=== PATIENT | male | born 1960 | race Caucasian/White ===

== ENCOUNTER 2018-02-13 23:41 | Observation (INO) | payer OTHER ==
[2018-02-14 00:03] LABS: Hemoglobin 15.4 g/dL (14.0-18.0); Mean Corpuscular HGB CONC 33.1 g/dL (32.0-36.0); Mean Corpuscular Volume 81.8 fl (80.0-94.0); Mean Platelet Volume 6.9 fL (7.4-10.4); Platelet Count 277 thou/uL (130-400); RBC Distribution Width 11.9 % (11.5-14.5); Red Blood Cell (RBC) Count 5.68 mill/uL (4.70-6.10); White Blood Cell (WBC) Count 8.3 thou/uL (4.8-10.8)
[2018-02-14] MEDS ORDERED: Nitroglycerin 0.4 MG TAB (25 Tab Bottle) ONE (00:06)
[2018-02-14] MEDS ORDERED: Mag-Al Plus 1200 MG/1200 MG/120 MG/30 ML UDCUP ONE (00:07)
[2018-02-14] MEDS ORDERED: Nitroglycerin 2% Ointment 1 INCH/1 GM Packet ONE (00:07)
[2018-02-14] MEDS ORDERED: Lidocaine Viscous Sol 2% 15 ml UD Cup ONE (00:07)
[2018-02-14 00:22] LABS: Eosinophils 3 % (0-10); Lymphocytes 39 % (21-51); MDiff Complete? YES; Monocytes 8 % (0-10); Neutrophil 50 % (42-75)
[2018-02-14 00:25] LABS: ALT (SGPT) 26 U/L (8-55); AST (SGOT) 20 U/L (5-34); Albumin 4.2 g/dL (3.5-5.0); Alkaline Phosphatase 57 U/L (40-150); Anion Gap 16 mmol/L (10-20); BUN (Urea Nitrogen) 17 mg/dL (8.4-25.7); Bilirubin, Total 0.6 mg/dL (0.2-1.2); CK (CPK) 103 U/L (30-200); Calc. Creatinine Clearance 0 mL/min (70-130); Calcium 9.4 mg/dL (7.8-10.44); Carbon Dioxide 23 mmol/L (22-29); Chloride 104 mmol/L (98-107); Estimated GFR-MDRD 61; Globulin 3.3 g/dL (2.4-3.5); Glucose 105 mg/dL (70-105); Lipase 35 U/L (8-78); Potassium 3.6 mmol/L (3.5-5.1); Protein, Total 7.5 g/dL (6.0-8.3); Sodium 139 mmol/L (136-145)
[2018-02-14 00:26] LABS: Troponin I Less than 0.010 ng/mL (< 0.028)
[2018-02-14] MEDS ORDERED: Ondansetron HCl/PF 4 MG/2 ML Vial IVP PRN ×2 (02:22→08:35)
[2018-02-14] MEDS ORDERED: Acetaminophen 325 MG TAB PO PRN (02:22)
[2018-02-14] MEDS ORDERED: Ondansetron ODT 4 MG TAB SL PRN (02:22)
[2018-02-14 02:43] VITALS: BMI 37.0
[2018-02-14 04:53] LABS: Troponin I Less than 0.010 ng/mL (< 0.028)
[2018-02-14 07:22] LABS: Troponin I 0.023 ng/mL (< 0.028)
--- NOTE | 2018-02-14 08:11 | RAD ---
SINGLE VIEW CHEST: Date: 02/13/18 COMPARISON: None. HISTORY: Chest pain. FINDINGS: Single view of the chest shows a normal sized cardiomediastinal silhouette. There is no evidence of c onsolidation, mass, or pleural effusion. The bones are unremarkable. IMPRESSION: No evidence of acute cardiopulmonary disease. POS: [facility]
[2018-02-14] MEDS ORDERED: Ondansetron ODT 4 MG TAB PO PRN (08:35)
[2018-02-14] MEDS ORDERED: HumaLOG 300 UNITS/3 ML VIAL SC PRN ×2 (08:35)
[2018-02-14] MEDS ORDERED: Dextrose 5% in Water 1,000 ML IV PRN (08:35)
[2018-02-14] MEDS ORDERED: cloNIDine 0.1 MG TAB PO PRN (08:35)
[2018-02-14] MEDS ORDERED: Acetaminophen 500 MG TAB PO PRN (08:35)
[2018-02-14] MEDS ORDERED: hydrALAZINE 20 MG/ML VIAL SLOW IVP PRN (08:35)
[2018-02-14] MEDS ORDERED: Dextrose 50% Abboject 50 ML SYRINGE SLOW IVP PRN (08:35)
[2018-02-14] MEDS ORDERED: Losartan 25 MG TAB PO SCH (09:00)
[2018-02-14] MEDS ORDERED: Famotidine 20 MG TAB PO SCH (09:00)
[2018-02-14] MEDS ORDERED: Amlodipine 10 MG TAB PO SCH (09:00)
[2018-02-14] MEDS ORDERED: Methocarbamol 500 MG TAB PO PRN (09:08)
--- NOTE | 2018-02-14 10:50 | HP ---
DATE OF ADMISSION: 02/14/2018 PRIMARY CARE PHYSICIAN: Dr. Mohsen Nolan. CHIEF COMPLAINT: Chest pain. HISTORY OF PRESENT ILLNESS: This is a 57-year-old male who presented to [facility] Emergency Department complaining of chest pain for approximately 30-40 minutes prior to arrival aft er getting ready for bed on 02/13/2018. The patient states he had a very stressful day at work which carried over into the early evening hours. The patient states he sat through meetings for approxima tely 12 hours and then took home approximately 4 hours of more work to be completed. The patient adm its to increased stress at his employment, which has been progressive. The patient noted his blood p ressure was elevated and takes chronic antihypertensive medications including amlodipine and carvedil ol. The patient states he has been compliant with his medication regimen, but has noted his systolic blood pressures running beyond his normal range. The patient states he felt pressure in the central portion of the chest, rating the pain 6/10. The patient had some associated shortness of breath and cough. The patient denied any recent fever, chills, chest trauma, left arm discomfort or jaw pain. The patient states he had a "mild heart attack" in 2000, undergoing stress testing which was nondiag nostic. The patient states he was told at that time it was likely stress related. The patient state s his father had coronary artery disease diagnosed in his early 50s, undergoing bypass surgery x2. T he patient states his last stress testing was approximately 2000. The patient admits that he is limi jean in sedentary as far as exercise regimen due to arthritis in both knees. The patient states he is slated for knee replacements in the near future. Currently, ambulates with a cane intermittently, b ut is functional of all activities of daily living. In the emergency room, patient underwent general evaluation including metabolic screening which was negative. Chest x-ray was unremarkable and EKG w as nondiagnostic. The patient received aspirin, GI cocktail, sublingual nitroglycerin and transderma l nitroglycerin as well as 324 mg aspirin. The patient was referred to the Hospitalist Service for e valuation. PAST MEDICAL HISTORY: 1. Hypertension. 2. Hyperlipidemia. 3. Diabetes mellitus type 2 on oral hypoglycemics. 4. Morbid obesity. 5. Osteoarthritis. PAST SURGICAL HISTORY: 1. Status post EGD. 2. Status post right knee arthroscopy. CURRENT MEDICATIONS: 1. Amlodipine 10 mg 1 tab p.o. daily. 2. Invokana 100 mg p.o. daily. 3. Carvedilol 25 mg p.o. b.i.d. 4. Amaryl 4 mg p.o. daily. 5. Losartan 100 mg 1 tab p.o. daily. 6. Metformin 1000 mg p.o. b.i.d. 7. Methocarbamol 750 mg p.o. t.i.d. p.r.n. 8. Pravachol 80 mg p.o. at bedtime. ALLERGIES: PENICILLIN and SULFA. FAMILY HISTORY: Father with early coronary artery disease in his 50s, status post coronary artery by pass surgery x2. SOCIAL HISTORY: Patient is and resides in [place], [place]. 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 No curr ent alcohol, tobacco or illicit drug use. Intermittent use of a cane for ambulation. REVIEW OF SYSTEMS: The following complete review of systems was negative, unless otherwise mentioned in the HPI or below: Constitutional: Weight loss or gain, ability to conduct usual activities. Skin: Rash, itching. Eyes: Double vision, pain. ENT/Mouth: Nose bleeding, neck stiffness, pain, tenderness. Cardiovascular: Palpitations, dyspnea on exertion, orthopnea. Respiratory: Shortness of breath, wheezing, cough, hemoptysis, fever or night sweats. Gastrointestinal: Poor appetite, abdominal pain, heartburn, nausea, vomiting, constipation, or diarr hea. Genitourinary: Urgency, frequency, dysuria, nocturia. Musculoskeletal: Pain, swelling. Neurologic/Psychiatric: Anxiety, depression. Allergy/Immunologic: Skin rash, bleeding tendency. Otherwise negative except as stated per HPI. PHYSICAL EXAMINATION: VITAL SIGNS: Currently blood pressure 167/77, pulse 66, respiratory rate 18, temperature 97.8 degree s Fahrenheit, and O2 saturation 93% on room air. GENERAL APPEARANCE: This is a 57-year-old male, alert and oriented x3, pleasant, conversan t, in no acute distress. HEENT: Pupils are equal, round, and reactive to light and accommodation. Extraocular muscles are in tact. No scleral icterus, no conjunctival injection. Nares patent. OP is clear. Teeth in good rep air. NECK: Supple, no cervical adenopathy, no thyromegaly, no carotid bruits, no JVD appreciated. Cervic al spine is full active and passive range of motion. No meningeal signs appreciated. CHEST: Lungs are clear to auscultation bilaterally. CARDIOVASCULAR: S1 and S2 without noted murmur, rub or gallop. ABDOMEN: Obese, soft, nontender, and nondistended. Bowel sounds are positive in all four quadrants. There is no hepatosplenomegaly, no abdominal bruits, no rebound or guarding appreciated. EXTREMITIES: Warm and dry with fair turgor. Pitting edema to the proximal shins bilaterally. Pulse s palpable distally at the dorsalis pedis, posterior tibial, and popliteal arteries bilaterally. Cap illary refill less than 2 seconds. NEUROLOGIC: Cranial nerves II-XII are grossly intact. No focal or lateralizing signs appreciated. PERTINENT LABORATORY DATA AND IMAGING DATA: Complete metabolic profile within normal limits. BNP 31 .7, troponin I negative x3. CBC within normal limits. Portable chest x-ray dated 02/13/2018 showed no acute cardiopulmonary process. EKG dated 02/13/2018 by my interpretation shows sinus mechanism wi th heart rates in the 70s. Attenuated R waves in the precordial leads. Normal axis. Voltage criter ia consistent with left ventricular hypertrophy. ASSESSMENT AND PLAN: 1. Chest pain. The patient will be observed on the telemetry unit. We will proceed with Cardiolite stress testing with serial troponin I negative x3. Continue aspirin 324 mg daily. Continue Pravach ol 40 mg p.o. at bedtime. 2. Hypertension, labile. We will resume home antihypertensive regimen with losartan 100 mg daily an d Norvasc 10 mg daily. Hold carvedilol 25 mg b.i.d. until Cardiolite stress testing completed. Cont inue serial blood pressure monitoring. 3. Diabetes mellitus type 2. Hold oral hypoglycemics, pending cardiac stress testing. Accu-Cheks q .6 hours. Insulin sliding scale for reflexive coverage. 4. Hyperlipidemia. Continue Pravachol 40 mg daily. 5. Prophylaxis. Sequential compression devices while in bed. Pepcid 20 mg p.o. b.i.d. 6. Code status is FULL. Surrogate medical decision maker is patient's spouse.
[2018-02-14 13:00] VITALS: TEMP 97.3
--- NOTE | 2018-02-14 13:51 | NM ---
NUCLEAR MEDICINE CARDIAC STRESS WITH EJECTION FRACTION AND WALL MOTION: Date: 02/14/18 HISTORY: Chest pain. COMPARISON: None. TECHNIQUE: The patient was administered 9.3 mCi of technetium-99m sestamibi for rest imaging and 29 mCi of techn etium-99m sestamibi for stress imaging. Cardiac gating is performed. FINDINGS: Homogeneous distribution of the radiotracer in the nonattenuated, as well as attenuated correction im ages. No reversibility. No fixed defect. TID is 1.14. End-diastolic volume is 189 ml. End-systolic volume is 90 ml. CARDIAC GATING: Normal motion and thickening. 53% ejection fraction. IMPRESSION: 1. No reversibility or fixed defect. 2. Dilatation of the left ventricle. 3. 53% ejection fraction. POS: [facility]
[2018-02-14 15:38] VITALS: BP 149/67
[2018-02-14] MEDS ORDERED: Regadenoson 0.4 MG/5 ML SYRINGE ONE (16:29)
[2018-02-14] MEDS ORDERED: Atorvastatin Calcium 10 MG TAB PO SCH (21:00)
--- NOTE | 2018-02-15 01:03 | DIS ---
DATE OF ADMISSION: 02/14/2018 DATE OF DISCHARGE: 02/14/2018 DISCHARGE DIAGNOSES: 1. Chest pain, atypical, noncardiac. 2. Hypertension, stable. 3. Diabetes mellitus type 2, stable. 4. Hyperlipidemia. 5. Obesity. CONSULTATIONS: None. PERTINENT LABORATORY AND X-RAY FINDINGS: Complete metabolic profile within normal limits. Troponin I negative x3. BNP 31.7. CBC within normal limits. Portable chest x-ray showed no acute cardiopulm onary process. Cardiolite stress test dated 02/14/2018 showed no evidence for reversible fixed ische zach with calculated ejection fraction of 53%. HOSPITAL COURSE: The patient was observed on the telemetry unit, presenting with chest pain with ris k factors to include hypertension, diabetes, and family history. The patient underwent serial cardia c enzymes which were negative x3 proceeding to Cardiolite stress testing showing no evidence for reve rsible or fixed ischemia with calculated ejection fraction of 53%. Telemetry monitoring showed no ev idence of acute arrhythmia or dysrhythmia, and patient remained clinically stable throughout the hosp ital course. The patient was noted on clinical exam with lower extremity edema contributed to Norvas c therapy. I have examined the patient at the time of discharge and reviewed all pertinent labs and x-ray studies. Reviewed cardiac stress testing with recommendations for followup. The patient verbcristal gonzalezes understanding and agreement and will discharge home on 02/14/2018. DISCHARGE MEDICATIONS: 1. Norvasc 10 mg 1 tab p.o. daily. 2. Invokana 100 mg p.o. daily. 3. Carvedilol 25 mg p.o. b.i.d. 4. Amaryl 4 mg p.o. daily. 5. Losartan 100 mg p.o. daily. 6. Metformin 1000 mg p.o. b.i.d. 7. Methocarbamol 750 mg p.o. q.8 hours p.r.n. 8. Pravachol 40 mg p.o. at bedtime. FOLLOWUP: The patient will follow up with his primary care provider, Dr. Mohsen Nolan within 7 days of discharge. CONDITION ON DISCHARGE: Stable. ACTIVITY: Ad romulo. DIET: Heart healthy and ADA. CODE STATUS: FULL. DISPOSITION: Home on 02/14/2018.
--- NOTE | 2018-02-23 12:56 | EKG ---
Test Reason : Blood Pressure : / mmHG Vent. Rate : 069 BPM Atrial Rate : 069 BPM P-R Int : 168 ms QRS Dur : 108 ms QT Int : 406 ms P-R-T Axes : 071 063 086 degrees QTc Int : 435 ms Normal sinus rhythm Left ventricular hypertrophy with repolarization abnormality Nonspecific ST abnormality Abnormal ECG Confirmed by FAMILIA YANEZ DO ([id number]), production editor THELMA TAY ([id number]) on 02/23/2018 12:56:31 PM Referred By: Confirmed By:FAMILIA YANEZ DO
== END 2018-02-14 16:53 | disposition home or self-care (01) ==
LOC: SCSER 23:41 → 2SW 02-14 00:40
PROVIDERS: ADMIT Internal Medicine; ATTEND Internal Medicine
DX: R07.89 Other chest pain (principal); I10 Essential (primary) hypertension; E78.5 Hyperlipidemia, unspecified; E11.9 Type 2 diabetes mellitus without complications; M19.90 Unspecified osteoarthritis, unspecified site; E66.01 Morbid (severe) obesity due to excess calories; Z68.37 Body mass index [BMI] 37.0-37.9, adult; Z79.84 Long term (current) use of oral hypoglycemic drugs; Z79.899 Other long term (current) drug therapy; Z88.0 Allergy status to penicillin; Z88.2 Allergy status to sulfonamides
CPT/HCPCS: 36415; 36416; 71045; 78452; 80053; 82550; 82553; 83690; 83880; 84484; 85025; 93005; 93017; A4216; A9500; G0378; J2785

== ENCOUNTER 2018-08-14 10:54 | Outpatient (CLI) | payer OTHER ==
--- NOTE | 2018-08-14 11:51 | RAD ---
TWO VIEWS CHEST: Comparison: None. History: Chest pain, shortness of breath. FINDINGS: Two views of the chest show normal sized cardiomediastinal silhouette. There is no evidence of consol idation, mass, or pleural effusion. The bones are unremarkable. IMPRESSION: No evidence of acute cardiopulmonary disease. POS: [facility]
== END 2018-08-14 10:55 | disposition home or self-care (01) ==
LOC: SCSRAD 10:54
PROVIDERS: ATTEND Nurse Practitioner Family
DX: J01.10 Acute frontal sinusitis, unspecified (principal)
CPT/HCPCS: 71046

== ENCOUNTER 2018-09-28 16:21 | Emergency (ER) | payer OTHER ==
[2018-09-28] MEDS ORDERED: Ketorolac Tromethamine 30 MG/ML VIAL ONE (16:41)
== END 2018-09-28 17:23 | disposition home or self-care (01) ==
LOC: SCSER 16:21
DX: J02.9 Acute pharyngitis, unspecified (principal); I10 Essential (primary) hypertension; E11.9 Type 2 diabetes mellitus without complications
CPT/HCPCS: J1885

== ENCOUNTER 2018-09-29 14:35 | Inpatient (IN) | payer OTHER ==
[2018-09-29 16:17] LABS: #Lymphocytes 1.3 thou/uL (1.20-3.40); #Neutrophils 17.1 thou/uL (1.40-6.50); %Basophils 0.2 % (0.0-1.0); %Eosinophils 0.2 % (0.0-10.0); %Lymphocytes 6.5 % (21.0-51.0); %Neutrophils 88.1 % (42.0-75.0); Mean Corpuscular HGB CONC 32.2 g/dL (32.0-36.0); Mean Corpuscular Hemoglobin 26.6 pg (27.0-31.0); Mean Corpuscular Volume 82.7 fL (78.0-98.0); Mean Platelet Volume 7.2 fL (7.4-10.4); Platelet Count 283 thou/uL (130-400); RBC Distribution Width 12.3 % (11.5-14.5); Red Blood Cell (RBC) Count 5.28 mill/uL (4.70-6.10); White Blood Cell (WBC) Count 19.4 thou/uL (4.8-10.8)
[2018-09-29 16:40] LABS: ALT (SGPT) 17 U/L (8-55); AST (SGOT) 15 U/L (5-34); Albumin 3.9 g/dL (3.5-5.0); Alkaline Phosphatase 50 U/L (40-150); Anion Gap 13 mmol/L (10-20); BUN (Urea Nitrogen) 15 mg/dL (8.4-25.7); Calc. Creatinine Clearance 0 mL/min (70-130); Calcium 9.3 mg/dL (7.8-10.44); Carbon Dioxide 22 mmol/L (22-29); Chloride 102 mmol/L (98-107); Estimated GFR-MDRD 61; Globulin 3.6 g/dL (2.4-3.5); Glucose 205 mg/dL (70-105); Potassium 3.4 mmol/L (3.5-5.1); Protein, Total 7.5 g/dL (6.0-8.3); Sodium 134 mmol/L (136-145)
--- NOTE | 2018-09-29 16:55 | RAD ---
PORTABLE CHEST ONE VIEW: 09/29/18 at 4:31 p.m. HISTORY: Fever. FINDINGS: Comparison made with exam of 08/14/18. The heart size is borderline. No lobar consolidation, pneumothoraces, usha pulmonary edema or pleura l effusions are seen. IMPRESSION: No acute process. POS: [facility]
[2018-09-29] MEDS ORDERED: Piperacillin/Tazobactam 4.5 GM VIAL ONE (17:46)
[2018-09-29] MEDS ORDERED: Dexamethasone 4 MG TAB ONE (17:48)
--- NOTE | 2018-09-29 17:54 | CT ---
CT OF NECK PERFORMED WITH CONTRAST ENHANCEMENT: 09/29/18 HISTORY: Patient presents to the ER for evaluation of fever, left sided neck mass, swollen lymph nodes. The lung apices are clear of any infiltrative process. Bilateral thyroid nodules are incidentally noted. The visualized brain parenchyma is normal. The parotid and submandibular glands are normal in size. There is marked jugular chain adenopathy, particularly on the left side. Some of the larger nodes josee suring in the 1.8 cm range. There is an edematous appearance to the epiglottis. There is edema change s and obliteration of the vallecular regions and left piriform sinus. There is asymmetric soft tissue changes along the left side of the neck at this region, even extending to the level of the carotid s dilma with loss of normal fat plains. There is some low attenuation which could be fluid density whic h is posterior to the airway at this level. Asymmetric soft tissue changes along the left side of the thyroid cartilage is seen, although changes stop just above the level of the focal cords. I do not s ee significant airway narrowing. IMPRESSION: Markedly edematous epiglottis with edema change with obliteration of vallecular regions and piriform sinus, particularly on the left side with indistinct soft tissue changes extending lateral to the hyo id bone and causing fat stranding even around the region of the carotid sheath. There is marked jugul ar chain lymphadenopathy associated with this particularly on the left side. I would favor that this is probably related an infectious process rather than an infiltrative tumor. There is some fluid dens ity which is seen posterior to the airway just above the vocal cord level. this could just represent edema. I cannot exclude their being some developing abscess. Findings discussed with Dr. George. POS: [facility]
[2018-09-29] MEDS ORDERED: Oseltamivir 75 MG CAP PO SCH (18:00)
[2018-09-29] MEDS ORDERED: Clindamycin/D5W 900 mg/50 ml Premix Bag ONE (18:40)
[2018-09-29] MEDS ORDERED: Dexamethasone 4 mg/ml Vial ONE (19:11)
[2018-09-29] MEDS ORDERED: Acetaminophen 500 MG TAB ONE (19:58)
[2018-09-29] MEDS ORDERED: Lactated Ringer's 1,000 ML IV SCH (21:00)
[2018-09-29] MEDS ORDERED: Acetaminophen 325 MG TAB PO PRN (21:02)
[2018-09-29] MEDS ORDERED: Morphine 2 MG/ML SYRINGE SLOW IVP PRN (21:05)
[2018-09-29 21:11] VITALS: BMI 36.8
[2018-09-29] MEDS ORDERED: Dextrose 50% Abboject 50 ML SYRINGE SLOW IVP PRN (21:46)
[2018-09-29] MEDS ORDERED: Dextrose 5% in Water 1,000 ML IV PRN (21:46)
[2018-09-29] MEDS: Lactated Ringer's 1,000 ML IV SCH (22:51)
[2018-09-29] MEDS: Clindamycin/D5W 600 MG in Premix Bag 1 BAG IVPB SCH (22:51)
[2018-09-29] MEDS ORDERED: Dexamethasone 4 mg/ml Vial SLOW IVP SCH (23:30)
--- NOTE | 2018-09-30 02:28 | HP ---
CHIEF COMPLAINT: Left-sided neck swelling and fever. HISTORY OF PRESENT ILLNESS: The patient is a very pleasant 57-year-old male with a history of hypertension and diabetes, who presented to the hospital with complaints of 103.0 fever and also left-sided neck pain. The patient stated that on Monday, around later on in the afternoon, he started having pain on swallowing and fever. The patient stated that he went to his local ER where he was given some Toradol and discharged home. The patient stated that he continued to have a fever which escalated up to 103.0. The patient stated that he felt that his left neck area was very swollen and was having a very difficult time swallowing. The patient stated that he was only able to eat some food today and only was able to swallow if he chewed his food very well. Denies any difficulty breathing. The patient denies any sick contacts. He denies any recent travels. He denies any recent dental procedures. PAST MEDICAL HISTORY: He has a history of, 1. Hypertension. 2. Diabetes type 2. 3. Obesity. 4. Osteoarthritis. 5. Hyperlipidemia. PAST SURGICAL HISTORY: He has had an EGD in the past and a knee arthroscopy. MEDICATIONS: As of the following; 1. Amlodipine 10 mg daily. 2. Invokana 100 mg daily. 3. Carvedilol 25 mg b.i.d. 4. Amaryl 4 mg daily. 5. Losartan 100 mg daily. 6. Metformin 1000 mg b.i.d. 7. Pravachol 80 mg at bedtime. ALLERGIES: HE IS ALLERGIC TO PENICILLIN AND SULFA. HE STATES THAT HE WENT INTO AN ARRHYTHMIA WITH PENICILLIN BACK IN 1970S. FAMILY HISTORY: Father has early history of coronary artery disease in his 50s, status post bypass. SOCIAL HISTORY: The patient denies any smoking, drug use, or alcohol history. He is a full code. He lives with his family. REVIEW OF SYSTEMS: All negative except for the ones mentioned above in HPI. PHYSICAL EXAMINATION: VITAL SIGNS: Are as of the following, temperature of 101.8, heart rate 92, respirations 20, oxygen saturation 95% room air, blood pressure 159/89. GENERAL: He is awake, alert, and oriented x3. Does not appear in distress. CV: S1 and S2 present. No murmurs, rubs, or gallops. LUNGS: Clear to auscultation. No rhonchi or wheezes noted. HEENT: He has some significant fullness on his left cervical neck area, able to see the patient's vocal cord. The patient has lymphadenopathy noted to his left anterior cervical area. ABDOMEN: Soft and nontender. Bowel sounds are present x2. No hepatomegaly or splenomegaly noted. EXTREMITIES: No edema. Pedal pulses present x2. SKIN: No cuts, lesions, or bruises noted. NEUROLOGIC: No focal deficits noted. NECK: Again does have cervical adenopathy and no carotid bruits heard. LABORATORY DATA: The patient's labs are as of the following; WBCs of 19.4, hemoglobin of 14.1, hematocrit of 43.6, platelets of 283. Chemistry; sodium of 134, potassium of 3.4, BUN of 15, creatinine 1.21, sugar is 205. The patient did have the CT of the neck, which indicated that he had markedly edematous epiglottis with edema change with obliteration of the vallecular region and the pyriform sinus, particularly on the left side and indistinct soft tissue changes extending laterally to the hyoid bone causing a flat strand even around the area of the carotid sheath. He also indicated marked jugular chain lymphadenopathy associated with this particular on the left side. His flu was positive for influenza B. ASSESSMENT AND PLAN: The patient is a very pleasant 57-year-old male who presents to the hospital with complaints of fever and left-sided pain. 1. Parapharyngeal abscess. The patient has significant anterior cervical lymphadenopathy on the left side of his neck area. We will start the patient on some clindamycin since he is allergic to penicillin. Also, the patient has no difficulty swallowing. May consider starting the patient on some steroids. The patient is admitted to the [facility]. We will start him on some IV hydration. ENT has been called and notified about this patient. 2. Positive influenza B. The patient does not have any symptoms of body aches and pain. No rhinorrhea. No cough. We will start the patient on treatment for the flu, Tamiflu 75 mg b.i.d. for 5 days. 3. History of diabetes. We will continue his insulin and also do Accu-Cheks. 4. Hypertension. We will continue his home medications. 5. Deep vein thrombosis prophylaxis. We will put the patient on some Lovenox subcu. Job ID: [id number]
[2018-09-30 04:57] LABS: #Lymphocytes 1.2 thou/uL (1.20-3.40); #Monocytes 0.4 thou/uL (0.11-0.59); #Neutrophils 17.6 thou/uL (1.40-6.50); %Basophils 0.1 % (0.0-1.0); %Eosinophils 0.2 % (0.0-10.0); %Lymphocytes 6.4 % (21.0-51.0); %Neutrophils 91.3 % (42.0-75.0); Hemoglobin 13.4 g/dL (14.0-18.0); Mean Corpuscular HGB CONC 32.4 g/dL (32.0-36.0); Mean Corpuscular Hemoglobin 26.9 pg (27.0-31.0); Mean Corpuscular Volume 82.8 fL (78.0-98.0); Mean Platelet Volume 7.5 fL (7.4-10.4); Platelet Count 259 thou/uL (130-400); RBC Distribution Width 12.4 % (11.5-14.5); White Blood Cell (WBC) Count 19.2 thou/uL (4.8-10.8)
[2018-09-30 05:19] LABS: Anion Gap 11 mmol/L (10-20); BUN (Urea Nitrogen) 16 mg/dL (8.4-25.7); Calc. Creatinine Clearance 176 mL/min (70-130); Calcium 8.9 mg/dL (7.8-10.44); Carbon Dioxide 24 mmol/L (22-29); Chloride 106 mmol/L (98-107); Estimated GFR-MDRD 86; Glucose 172 mg/dL (70-105); Potassium 3.4 mmol/L (3.5-5.1); Sodium 138 mmol/L (136-145)
[2018-09-30] MEDS: Clindamycin/D5W 600 MG in Premix Bag 1 BAG IVPB SCH ×3 (05:43→21:21)
[2018-09-30] MEDS ORDERED: diphenhydrAMINE 50 MG/ML VIAL IVP SCH (07:15)
[2018-09-30] MEDS: Atorvastatin Calcium 10 MG TAB PO SCH (07:54)
[2018-09-30] MEDS: Carvedilol 25 MG TAB PO SCH ×2 (07:54→16:57)
[2018-09-30] MEDS: Dexamethasone 4 mg/ml Vial SLOW IVP SCH ×2 (07:55→20:42)
[2018-09-30] MEDS: Famotidine/PF 20 mg/2ml Vial SLOW IVP SCH ×2 (07:56→20:41)
[2018-09-30] MEDS: Oseltamivir 75 MG CAP PO SCH ×2 (07:56→20:42)
[2018-09-30] MEDS: Enoxaparin Sodium 40 MG/0.4 ML SYRINGE SC SCH (07:57)
[2018-09-30] MEDS: HumaLOG 300 UNITS/3 ML VIAL SC PRN ×2 (11:37→16:57)
[2018-09-30] MEDS: Lactated Ringer's 1,000 ML IV SCH (13:06)
--- NOTE | 2018-09-30 15:02 | PDOC.PN ---
- Subjective Encounter Start Date: 09/30/18 Encounter Start Time: 15:00 Subjective: pain in the throat, difficulty swallowing - Objective Resuscitation Status - Order Detail: 09/29/18 21:02 Resuscitation Status Routine Resuscitation Status: FULL: Full Resuscitation Vital Signs & Weight: Vital Signs (12 hours) Temp Pulse Resp BP Pulse Ox 09/30/18 10:50 97.8 F 76 16 113/61 97 09/30/18 08:00 95 09/30/18 07:24 98.1 F 84 16 112/40 L 95 09/30/18 03:49 98.6 F 73 20 124/68 93 L Weight Weight 310 lb 12.8 oz I&O: 09/29/18 09/30/18 10/01/18 06:59 06:59 06:59 Intake Total 1350 Balance 1350 Result Diagrams: 09/30/18 04:10 09/30/18 04:10 Additional Labs: Accuchecks 09/30/18 09/30/18 11:13 05:46 POC Glucose 179 H 167 H Phys Exam - Physical Examination in distress left submandibular swelling, tender + node Respiratory: no wheezing, no rales Cardiovascular: RRR, no significant murmur Gastrointestinal: soft, non-tender, no distention Musculoskeletal: no edema, pulses present Neurological: non-focal, normal sensation, moves all 4 limbs Psychiatric: normal affect, A&O x 3 Skin: no rash, normal turgor, cap refill <2 seconds Dx/Plan (1) Submandibular abscess Code(s): K12.2 - CELLULITIS AND ABSCESS OF MOUTH Status: Acute Comment: continue abx, pain control, IV hydration and soft mechanical diet - Plan cont current plan of care, continue antibiotics, DVT proph w/lovenox * .
--- NOTE | 2018-09-30 16:51 | CON ---
DATE OF CONSULTATION: HISTORY OF PRESENT ILLNESS: This is a 57-year-old obese gentleman, presented to the ER with neck pain, swelling, and temperature up to 103.9 degrees. This started 24 hours prior to his admission. Swelling in the left side, but no difficulty breathing. He is a nonsmoker. He thought he had flu-like symptoms. No prior history of TB, pneumonia, or bronchial asthma. CT of the neck showed evidence of edema of the epiglottis, edema involving the soft tissue lateral to the hyoid bone. There was marked jugular lymphadenopathy on the left side, some fluid density in the same side. Some fluid was seen posteriorly in the airway just above the vocal cords. He has been seen by an ENT physician. Awaiting any intervention. This morning, he says, he is feeling somewhat better. PAST MEDICAL HISTORY: Type 2 diabetes, hypertension, and carotid disease. PAST SURGICAL HISTORY: Previous surgery: Right knee scope and EGD. SOCIAL HISTORY: He is a security computer expert at . Alcohol, none. Tobacco, none. MEDICATIONS: List of medicine from home includes; 1. Coreg 25 twice a day. 2. Invokana 100 once a day. 3. day. 4. Metformin 1000 twice a day. 5. Protonix 40. 6. Losartan . His influenza screen was negative for influenza A and positive for influenza B. He was started on Tamiflu. So far, other cultures are negative. REVIEW OF SYSTEMS: Otherwise, unremarkable. PHYSICAL EXAMINATION: GENERAL: He is awake, alert, and responsive. VITAL SIGNS: His temperature this morning is 98, pulse 84, blood pressure 112/40, and saturation on room air. NECK: His left neck is swollen. CHEST: No wheezing or crackles. CARDIAC: Normal S1 and S2. No gallops. ABDOMEN: No masses. LABORATORY DATA: As noted, his chest x-ray was normal. White count 19,000, H and H 13 and 41, platelet count 259. Lytes normal. Glucose 161. IMPRESSION: 1. Influenza B. 2. Left neck adenitis with associated some respiratory compromise. 3. He is on clindamycin. Decadron was initiated. We are waiting input from ENT. We will follow. Consultation note, 90 minutes, 50% direct patient care. Job ID: [id number]
[2018-09-30] MEDS: Cefepime 2 GM in Sodium Chloride 0.9% 100 ML IVPB SCH (20:42)
[2018-09-30] MEDS ORDERED: Zolpidem Tartrate 5 MG TAB PO PRN (21:53)
--- NOTE | 2018-09-30 22:14 | CON ---
DATE OF CONSULTATION: INPATIENT FOLLOWUP SUBJECTIVE: The patient has been admitted overnight on IV antibiotics and received his Decadron. Reports his swallowing and voice changes are nearly completely gone. He is still having tenderness of his left neck, but he does report that the size of the bump has gone down. PHYSICAL EXAMINATION: VITAL SIGNS: Vital signs are stable. No stridor. Voice is clear today. He is tolerating secretions well. NECK: chemical machine tender lymph node but almost diminished in size about 50%. ORAL CAVITY: Oropharynx, mucosa is intact. ASSESSMENT: 1. Acute epiglottitis and laryngitis, much improved after IV steroids and IV antibiotics. 2. Influenza positive. continue his observation with the Medicine Service. I feel his airway is safe to be transferred to a regular floor. Job ID: [id number] [facility]
--- NOTE | 2018-09-30 22:14 | CON ---
DATE OF CONSULTATION: 09/29/2018 The patient seen in a consultation by ER for evaluation of sore throat and dysphagia. BRIEF HISTORY: This is a 57-year-old gentleman sore throat began yesterday, had a severe onset of fevers, chills at 103. Also of the day today, he has had severe sore throat. He has been unable to eat and proceeded to the emergency room secondary to trouble swallowing and voice changes. There is no previous history of any tonsillitis or pharyngitis. He was treated with anti-inflammatories yesterday with no improvement. PAST MEDICAL HISTORY: Diabetes and hypertension. PAST SURGICAL HISTORY: No history of head and neck surgery. SOCIAL HISTORY: Lives at home. Nonsmoker, nondrinker. FAMILY HISTORY: Diabetes and hypertension. REVIEW OF SYSTEMS: CONSTITUTIONAL: Previous to yesterday, no fevers, chills, or weight changes. CARDIOVASCULAR: No chest pain or palpitations. ENDOCRINOLOGY: Blood sugar has been under control, under 200 to 210. HEMATOLOGY: No history of bleeding disorders. PHYSICAL EXAMINATION: GENERAL: The patient is resting in bed. He does have a mild raspy quality to his voice. There is no evidence of inspiratory or expiratory stridor. Oral cavity, oropharynx shows no trismus. Mucosa is intact. aerated. Nasal cavities clear. Slightly congested mucosa. NECK: Subtle lymphadenopathy, left level 2, approximately 1.5 to 2 cm, very tender to touch. No evidence of fluctuance or cellulitis externally. PROCEDURE: Flexible laryngoscopy was performed at the bedside after topical anesthesia and decongestant were applied to the nasal cavity. The nasal cavity and nasopharynx were clear. There is some edema of the epiglottis extending mainly onto the left aryepiglottic fold, left piriform sinus, and left lateral pharyngeal wall area. There is some secretions; however, he is clearing them appropriately. Bilateral vocal cords are fully mobile. The edema does not extend to the level of the vocal cords at this moment. ASSESSMENT: 1. Acute epiglottitis. 2. Acute laryngitis. 3. Viral URI plan. RECOMMENDS: Admitting for observation in the IMCU. 16 mg of Decadron has been given and the patient was started on IV antibiotics. We will monitor pulse oximetry and symptomatically over this night and re-evaluate him tomorrow. Job ID: [id number] MTDD
[2018-10-01] MEDS: Lactated Ringer's 1,000 ML IV SCH ×3 (00:52→17:34)
[2018-10-01] MEDS: Clindamycin/D5W 600 MG in Premix Bag 1 BAG IVPB SCH ×2 (05:15→14:07)
[2018-10-01] MEDS: HumaLOG 300 UNITS/3 ML VIAL SC PRN ×3 (06:04→17:53)
[2018-10-01] MEDS: Cefepime 2 GM in Sodium Chloride 0.9% 100 ML IVPB SCH ×2 (09:09→17:54)
[2018-10-01] MEDS: Atorvastatin Calcium 10 MG TAB PO SCH (09:09)
[2018-10-01] MEDS: Dexamethasone 4 mg/ml Vial SLOW IVP SCH (09:09)
[2018-10-01] MEDS: Carvedilol 25 MG TAB PO SCH ×2 (09:09→17:54)
[2018-10-01] MEDS: Oseltamivir 75 MG CAP PO SCH (09:10)
[2018-10-01] MEDS: Enoxaparin Sodium 40 MG/0.4 ML SYRINGE SC SCH (09:11)
[2018-10-01] MEDS: Famotidine/PF 20 mg/2ml Vial SLOW IVP SCH (09:11)
--- NOTE | 2018-10-01 14:27 | PRG ---
DATE OF SERVICE: 10/01/2018 SERVICE: Pulmonary Medicine. INTERVAL HISTORY: The patient is doing excellent from respiratory standpoint. Breathing comfortably. There is no shortness of breath, fevers, or chills. He has absolutely no difficulty with breathing, or swallowing. His appetite is improved. Otherwise, he has returned to his usual state of health. PHYSICAL EXAMINATION: VITAL SIGNS: Afebrile, pulse 54, blood pressure 120/70, respirations 16, and saturation 97% on room air. GENERAL: The patient is awake and alert, in no apparent distress. LUNGS: Excellent air entry. Minimal dependent crackles are noted. HEART: Normal rate and regular. ABDOMEN: Soft, nontender, and nondistended. Bowel sounds are positive. MUSCULOSKELETAL: No cyanosis or clubbing. No pitting in the bilateral lower extremities. NEUROLOGIC: Grossly nonfocal. LABORATORY DATA: WBC 19.2, hemoglobin 13.4, and platelets 259,000. Blood sugar ranges from 167 to 204. Blood cultures x2, Streptococcus culture, urine culture is negative. Influenza B is positive. ASSESSMENT: 1. Epiglottitis. 2. Influenza B. DISCUSSION AND PLAN: The patient is doing absolutely fantastic from respiratory standpoint. From my perspective, he is stable for transition out of the hospital. He complete a 5-day course of steroids and antibiotics per primary's discretion. Pulmonary/Critical Care will continue to follow along if he remains in-house, but hopefully he will be going home in short order. Job ID: [id number]
[2018-10-01 15:27] VITALS: BP 153/89; TEMP 98
--- NOTE | 2018-10-01 15:48 | DIS ---
DATE OF ADMISSION: 09/29/2018 DATE OF DISCHARGE: 10/01/2018 ADMISSION DIAGNOSES: 1. Parapharyngeal abscess. 2. Hypertension. 3. Diabetes. 4. Obesity. 5. Osteoarthritis. 6. Hyperlipidemia. DISCHARGE DIAGNOSES: 1. Parapharyngeal abscess. 2. Hypertension. 3. Diabetes. 4. Obesity. 5. Osteoarthritis. 6. Hyperlipidemia. HISTORY OF PRESENTING ILLNESS: This is a 57-year-old male, who with a history of diabetes and hypertension, presented to the ER with complaints of severe neck pain, swelling, and a fever of 103. The pain started a day ago prior to his admission. The patient was admitted and a CT scan of the neck revealed a parapharyngeal abscess, which was treated here with IV antibiotics and prednisone. The patient responded significantly well. His pain and swelling went down and was discharged home with p.o. prednisone and clindamycin. The patient was advised to follow up with his primary care physician. DISCHARGE MEDICATIONS: Continue all the home medications. 1. Amlodipine 10 mg p.o. daily. 2. Invokana 100 mg p.o. daily. 3. Carvedilol 25 mg b.i.d. 4. Amaryl 4 mg p.o. daily. 5. Losartan 100 mg p.o. daily. 6. Metformin 1000 mg p.o. b.i.d. 7. Pravachol 80 mg p.o. at bedtime. 8. Clindamycin 600 mg p.o. t.i.d. 9. Prednisone 20 mg p.o. daily for 3 days. DISCHARGE INSTRUCTIONS: 1. Please take medications as prescribed. 2. Follow up with the primary care physician. ACTIVITY: As tolerated. DIET: Low-fat diabetic diet, exercise, and try to lose weight. Job ID: [id number]
== END 2018-10-01 19:06 | disposition home or self-care (01) | DRG 153 ==
LOC: ERS 14:35 → IMCU/EMU 17:45
PROVIDERS: ADMIT Internal Medicine; ATTEND Internal Medicine
DX: J39.0 Retropharyngeal and parapharyngeal abscess (principal); K12.2 Cellulitis and abscess of mouth; J05.10 Acute epiglottitis without obstruction; J11.1 Influenza due to unidentified influenza virus with other respiratory manifestations; E11.9 Type 2 diabetes mellitus without complications; I10 Essential (primary) hypertension; E78.5 Hyperlipidemia, unspecified; M19.90 Unspecified osteoarthritis, unspecified site; J04.0 Acute laryngitis; Z68.36 Body mass index [BMI] 36.0-36.9, adult
CPT/HCPCS: 36415; 36416; 70491; 71045; 80048; 80053; 83605; 85025; 87040; 87081; 87086; 87430; 87804; 96365; 96367; 96372; 96375; J0692; J1100; J1200; J1650; J1885; J2543; J3370; J3480; J3490; J7050; J8540; S0028

== ENCOUNTER 2018-10-30 20:12 | Emergency (ER) | payer OTHER, SELFPAY | END 2018-10-30 20:56 | disposition home or self-care (01) | LOC: SCSER 20:12 | DX: M71.21 Synovial cyst of popliteal space [Baker], right knee (principal); E78.5 Hyperlipidemia, unspecified; E11.9 Type 2 diabetes mellitus without complications; I10 Essential (primary) hypertension; I25.2 Old myocardial infarction | CPT/HCPCS: 99281 ==

== ENCOUNTER 2025-08-13 22:43 | Inpatient (IN) | payer MEDICARE, SELFPAY ==
[2025-08-13 23:22] LABS: #Basophils 0.07 10x3/uL (0.0-0.2); #Eosinophils 0.28 10x3/uL (0.0-0.7); #Monocytes 0.57 10x3/uL (0.11-0.59); #Neutrophils 4.27 10x3/uL (1.40-6.50); %Basophils 0.8 % (0.0-1.0); %Eosinophils 3.4 % (0.0-10.0); %Lymphocytes 37.3 % (21.0-51.0); %Monocytes 6.9 % (0.0-10.0); %Neutrophils 51.4 % (42.0-75.0); Hematocrit 42.4 % (42.0-52.0); Hemoglobin 13.7 g/dL (14.0-18.0); Mean Corpuscular Hemoglobin 26.2 pg (27.0-31.0); Mean Corpuscular Volume 81.2 fL (78.0-98.0); Platelet Count 219 10x3/uL (130-400); Red Blood Cell (RBC) Count 5.22 mill/uL (4.70-6.10); White Blood Cell (WBC) Count 8.31 10x3/uL (4.8-10.8)
[2025-08-13 23:38] LABS: ALT (SGPT) 26 U/L (Less than 45); AST (SGOT) 26 U/L (11-34); Albumin 4.0 g/dL (3.1-4.5); Alkaline Phosphatase 65 U/L (40-110); Anion Gap 14 mmol/L (10-20); BUN (Urea Nitrogen) 19 mg/dL (8.4-25.7); Bilirubin, Total 0.5 mg/dL (0.3-1.2); Calc. Creatinine Clearance 0 mL/min (70-130); Calcium 9.7 mg/dL (7.8-10.44); Carbon Dioxide 24 mmol/L (23-31); Chloride 104 mmol/L (98-107); Globulin 3.4 g/dL (2.4-3.5); Glucose 167 mg/dL (80-115); Potassium 4.0 mmol/L (3.5-5.1); Sodium 138 mmol/L (136-145)
[2025-08-14 00:14] LABS: Bacteria/HPF None Seen HPF (None Seen); CAUTI Indications for Culture Alt mental st,lethar; Glucose, Urine (Dipstick) Normal (Negative); Leukocyte Negative Leu/uL (Negative); Protein, Urine (Dipstick) Negative (Neg-Trace); RBC/HPF None Seen HPF (0-3); Specific Gravity, Urine 1.010 (1.002-1.036); WBC/HPF 0-3 HPF (0-3)
[2025-08-14 00:17] LABS: Urine Culture Reflex No No
[2025-08-14 01:10] LABS: Cocaine Metabolite Screen Negative (Negative); THC/Cannabinoid Screen Negative (Negative); Tricyclic Screen Negative (Negative)
[2025-08-14] MEDS ORDERED: hydrALAZINE 20 MG/ML VIAL ONE (02:05)
[2025-08-14 02:08] LABS: Actual Bicarbonate (HCO3v) 23.9 mEq/L (22-28); Base Excess -1.0 mEq/L (-2.0 to +3.0); Calcium, Ionized (venous) 1.17 mmol/L (1.16-1.32); Chloride (VBG) 103 mmol/L (98-106); Hematocrit-VBG 41 % (42.0-52.0); Hemoglobin (Hb) 14.1 g/dL (12.6-17.4); Potassium (VBG) 3.84 mmol/L (3.70-5.30); Sodium 140 mmol/L (133-146)
[2025-08-14] MEDS ORDERED: Calcium Carbonate 500 MG ChewTAB PO PRN (02:46)
[2025-08-14] MEDS ORDERED: Acetaminophen 325 MG TAB PO PRN (02:46)
[2025-08-14] MEDS ORDERED: Ondansetron PF 4 MG/2 ML Vial IVP PRN (02:46)
[2025-08-14] MEDS ORDERED: Dextrose 50% Abboject 50 ML SYRINGE SLOW IVP PRN (02:48)
[2025-08-14] MEDS ORDERED: Glucagon 1 MG/ML KIT IM PRN (02:48)
[2025-08-14] MEDS ORDERED: niCARdipine 25 MG/10 ML SDV ONE (02:59)
[2025-08-14] MEDS ORDERED: Electrolyte Replacement Protocol 1 EACH FS SCH (03:00)
[2025-08-14] MEDS ORDERED: Potassium Chloride 20 MEQ in Premix 1 BAG IVPB PRN (03:00)
[2025-08-14] MEDS ORDERED: Magnesium 2 GM/50 ML(in water) 2 GM in Premix 1 BAG IVPB PRN (03:00)
[2025-08-14] MEDS ORDERED: PHOS-NAK 1 PKT PACK PO PRN (03:00)
[2025-08-14 04:28] LABS: #Basophils 0.06 10x3/uL (0.0-0.2); #Eosinophils 0.23 10x3/uL (0.0-0.7); #Monocytes 0.41 10x3/uL (0.11-0.59); #Neutrophils 3.88 10x3/uL (1.40-6.50); %Basophils 0.8 % (0.0-1.0); %Eosinophils 3.2 % (0.0-10.0); %Lymphocytes 36.4 % (21.0-51.0); %Monocytes 5.7 % (0.0-10.0); %Neutrophils 53.8 % (42.0-75.0); Hematocrit 43.4 % (42.0-52.0); Hemoglobin 14.1 g/dL (14.0-18.0); Mean Corpuscular Hemoglobin 26.2 pg (27.0-31.0); Mean Corpuscular Volume 80.5 fL (78.0-98.0); Platelet Count 221 10x3/uL (130-400); Red Blood Cell (RBC) Count 5.39 mill/uL (4.70-6.10); White Blood Cell (WBC) Count 7.22 10x3/uL (4.8-10.8)
[2025-08-14 05:05] LABS: ALT (SGPT) 23 U/L (Less than 45); AST (SGOT) 27 U/L (11-34); Albumin 4.0 g/dL (3.1-4.5); Alkaline Phosphatase 63 U/L (40-110); Anion Gap 14 mmol/L (10-20); BUN (Urea Nitrogen) 16 mg/dL (8.4-25.7); Bilirubin, Total 0.6 mg/dL (0.3-1.2); Calc. Creatinine Clearance 0 mL/min (70-130); Calcium 9.6 mg/dL (7.8-10.44); Carbon Dioxide 24 mmol/L (23-31); Chloride 105 mmol/L (98-107); Globulin 3.5 g/dL (2.4-3.5); Glucose 157 mg/dL (80-115); Potassium 3.8 mmol/L (3.5-5.1); Sodium 139 mmol/L (136-145)
[2025-08-14] MEDS: Ibuprofen 800 MG TAB PO SCH (05:08)
[2025-08-14 05:36] VITALS: BMI 32.9
[2025-08-14] MEDS: Carvedilol 25 MG TAB PO SCH (07:26)
[2025-08-14] MEDS: Losartan 25 MG TAB PO SCH (07:27)
[2025-08-14] MEDS: niCARdipine 25 MG in Sodium Chloride 0.9% 250 ML 250 ML IVPB SCH (07:34)
[2025-08-14] MEDS: cloNIDine 0.3mg/24 Hour PATCH TD SCH (11:01)
[2025-08-14] MEDS: Mupirocin 1 GM TUBE TP SCH (11:08)
[2025-08-14] MEDS: Finasteride 5 MG TAB PO SCH (11:41)
[2025-08-14] MEDS: hydrALAZINE 20 MG/ML VIAL SLOW IVP PRN (12:34)
[2025-08-14] MEDS: NIFEdipine XL 90 MG ER.TAB PO SCH (15:47)
[2025-08-14] MEDS: Senokot S 8.6-50 MG TAB PO SCH (20:37)
[2025-08-15 07:42] LABS: #Basophils 0.05 10x3/uL (0.0-0.2); #Eosinophils 0.25 10x3/uL (0.0-0.7); #Monocytes 0.49 10x3/uL (0.11-0.59); #Neutrophils 4.81 10x3/uL (1.40-6.50); %Basophils 0.6 % (0.0-1.0); %Eosinophils 3.2 % (0.0-10.0); %Lymphocytes 28.6 % (21.0-51.0); %Monocytes 6.2 % (0.0-10.0); %Neutrophils 61.0 % (42.0-75.0); Hematocrit 40.0 % (42.0-52.0); Hemoglobin 12.8 g/dL (14.0-18.0); Mean Corpuscular Hemoglobin 25.9 pg (27.0-31.0); Mean Corpuscular Volume 80.8 fL (78.0-98.0); Platelet Count 223 10x3/uL (130-400); Red Blood Cell (RBC) Count 4.95 mill/uL (4.70-6.10); White Blood Cell (WBC) Count 7.88 10x3/uL (4.8-10.8)
[2025-08-15 08:01] LABS: Anion Gap 10 mmol/L (10-20); BUN (Urea Nitrogen) 15 mg/dL (8.4-25.7); Calc. Creatinine Clearance 158 mL/min (70-130); Calcium 8.9 mg/dL (7.8-10.44); Carbon Dioxide 27 mmol/L (23-31); Chloride 106 mmol/L (98-107); Glucose 142 mg/dL (80-115); Potassium 3.5 mmol/L (3.5-5.1); Sodium 139 mmol/L (136-145)
[2025-08-15] MEDS: Finasteride 5 MG TAB PO SCH (10:23)
[2025-08-15] MEDS: NIFEdipine XL 90 MG ER.TAB PO SCH (10:46)
[2025-08-16 05:07] LABS: #Basophils 0.04 10x3/uL (0.0-0.2); #Eosinophils 0.22 10x3/uL (0.0-0.7); #Monocytes 0.53 10x3/uL (0.11-0.59); #Neutrophils 3.61 10x3/uL (1.40-6.50); %Basophils 0.6 % (0.0-1.0); %Eosinophils 3.1 % (0.0-10.0); %Lymphocytes 38.0 % (21.0-51.0); %Monocytes 7.5 % (0.0-10.0); %Neutrophils 50.7 % (42.0-75.0); Hematocrit 39.8 % (42.0-52.0); Hemoglobin 12.8 g/dL (14.0-18.0); Mean Corpuscular Hemoglobin 26.0 pg (27.0-31.0); Mean Corpuscular Volume 80.9 fL (78.0-98.0); Platelet Count 215 10x3/uL (130-400); Red Blood Cell (RBC) Count 4.92 mill/uL (4.70-6.10); White Blood Cell (WBC) Count 7.11 10x3/uL (4.8-10.8)
[2025-08-16 05:21] LABS: Anion Gap 13 mmol/L (10-20); BUN (Urea Nitrogen) 20 mg/dL (8.4-25.7); Calc. Creatinine Clearance 147 mL/min (70-130); Calcium 8.6 mg/dL (7.8-10.44); Carbon Dioxide 24 mmol/L (23-31); Chloride 107 mmol/L (98-107); Glucose 142 mg/dL (80-115); Magnesium 1.9 mg/dL (1.6-2.6); Potassium 3.5 mmol/L (3.5-5.1); Sodium 140 mmol/L (136-145)
[2025-08-16 12:16] VITALS: BP 154/67; TEMP 97.9
[2025-08-21] MEDS ORDERED: cloNIDine 0.3mg/24 Hour PATCH TD SCH (09:00)
== END 2025-08-16 13:30 | disposition home or self-care (01) | DRG 304 ==
LOC: ERS 22:43 → ERHOLD 08-14 02:48 → CCU 08-14 04:32 → 2NO 08-15 08:32
PROVIDERS: ADMIT Student in an Organized Health Care Education/Training Program; ATTEND Internal Medicine
PROC: XX20X89 Monitoring of Brain Electrical Activity, Computer-aided Detection and Notification, New Technology Group 9 (ICD-10-PCS; principal; 2025-08-14)
DX: I16.1 Hypertensive emergency (principal); I67.83 Posterior reversible encephalopathy syndrome; R00.1 Bradycardia, unspecified; I10 Essential (primary) hypertension; E11.65 Type 2 diabetes mellitus with hyperglycemia; K21.9 Gastro-esophageal reflux disease without esophagitis; N40.0 Benign prostatic hyperplasia without lower urinary tract symptoms; I25.10 Atherosclerotic heart disease of native coronary artery without angina pectoris; I25.2 Old myocardial infarction; Z98.890 Other specified postprocedural states; Z88.0 Allergy status to penicillin; Z88.2 Allergy status to sulfonamides
CPT/HCPCS: 36415; 36416; 70450; 70553; 71045; 76376; 80048; 80053; 80306; 81001; 82140; 82805; 83036; 83605; 83735; 83880; 84484; 85025; 87040; 87428; 93005; 93010; 94760; 95813; 96365; 96375; J0360; J1815; J7050